=== PATIENT | female | born 1985 | race Caucasian/White ===

== ENCOUNTER 2018-07-21 20:43 | Emergency (ER) | payer OTHER, MEDICAID ==
[~2018-07-21] VITALS: Ht 154.9 cm; Wt 74.2 kg
[2018-07-21] MEDS ORDERED: SODIUM CHLORIDE 0.9% 1,000ML IVBOLUS ONE (21:30)
[2018-07-21] MEDS ORDERED: ONDANSETRON ODT 4 MG PO ONE (21:30)
[2018-07-21] MEDS ORDERED: MORPHINE SULFATE 4 MG/ML, 1ML IVPush PRN (21:30)
[2018-07-21] MEDS ORDERED: SODIUM CHLORIDE FLUSH 10ML SYR IVF ONE (21:30)
[2018-07-21 21:36] LABS: BASOPHILS # (AUTO) 0.08 x10^3/uL (0-0.1); BASOPHILS % (AUTO) 1 % (0-1); EOSINOPHILS # (AUTO) 0.14 x10^3/uL (0-0.4); EOSINOPHILS % (AUTO) 1 % (1-7); LYMPHOCYTES # (AUTO) 3.25 x10^3/uL (1-3.4); LYMPHOCYTES % (AUTO) 29 % (22-44); MD NO; MEAN CORPUSCULAR HEMOGLOBIN 28.9 pg (27.0-34.8); MEAN PLATELET VOLUME 9.3 fL (7.4-10.4); MONOCYTES # (AUTO) 0.76 x10^3/uL (0.2-0.8); MONOCYTES % (AUTO) 7 % (2-9); NEUTROPHILS # (AUTO) 7.01 x10^3/uL (1.8-6.8); NEUTROPHILS % (AUTO) 62 % (42-75); PLATELET COUNT 369 x10^3/uL (130-400); RED BLOOD COUNT 4.99 x10^6/uL (3.82-5.3); RED CELL DISTRIBUTION WIDTH 13.6 % (9.6-15.2)
[2018-07-21] MEDS ORDERED: ONDANSETRON ODT 4 MG ONE (21:36)
[2018-07-21] MEDS ORDERED: MORPHINE SULFATE 4 MG/ML, 1ML ONE (21:36)
[2018-07-21 21:46] LABS: ALANINE AMINOTRANSFERASE 33 U/L (12-78); ALBUMIN 4.3 g/dL (3.4-5.0); ANION GAP 8 mmol/L (5-15); CALCIUM 8.9 mg/dL (8.5-10.1); CHLORIDE 108 mmol/L (98-107); CREATININE 0.96 mg/dL (0.55-1.02)
[2018-07-21 21:50] LABS: ALKALINE PHOSPHATASE 66 U/L (45-117); BILIRUBIN,TOTAL 0.3 mg/dL (0.2-1.0); TOTAL PROTEIN 8.3 g/dL (6.4-8.2)
[2018-07-21] MEDS ORDERED: PINK LADY ENEMA 490 ML BOTTLE PR ONE (22:30)
[2018-07-21 23:51] VITALS: BP 140/82
[2018-07-22] MEDS ORDERED: DICYCLOMINE 10 MG/ML, 2ML IM ONE (00:30)
[2018-07-22] MEDS ORDERED: METHYLNALTREXONE 12 MG/0.6 ML SQ ONE ×2 (00:30→00:41)
[2018-07-22] MEDS ORDERED: DICYCLOMINE 10 MG/ML, 2ML ONE (00:41)
== END 2018-07-22 01:34 | disposition home or self-care (01) ==
LOC: ED 22:39
DX: K59.00 Constipation, unspecified (principal); R10.84 Generalized abdominal pain
CPT/HCPCS: 36415; 74022; 80053; 83690; 84703; 85025; 96372; 96374; 99285; J0500; J7030; Q0162